=== PATIENT | female | born 1970 | race African-American/Black ===

== ENCOUNTER 2016-12-22 03:28 | Emergency (ER) | payer MEDICAID ==
[~2016-12-22] VITALS: Ht 170.2 cm; Wt 72.6 kg
[2016-12-22 03:30] VITALS: BP 141/98; PULSE 98; RESP 16; TEMP 97.9; O2SAT 99
--- NOTE | 2016-12-22 03:30 | NUR ---
Placed in room 06 . Placed on electronic device monitor, blood pressure machine and pulse oximeter. To gown for exam. Side rails up. Report given to KANNAN Parr.
--- NOTE | 2016-12-22 03:35 | NUR ---
Pt states she was rollerbladding around 2300 and fell on her tailbone. Pt states her pain is 9/10 and she cannot sleep. No deformities noted. Will continue to monitor. No distress noted.
--- NOTE | 2016-12-22 03:40 | NUR ---
ER at bedside examining patient.
--- NOTE | 2016-12-22 04:00 | NUR ---
Patient walked out of room and out of ED, stating "I'm just going to wait for my sister," Patient informed that she could wait for family in room, patient refused stating, "I'll just be a minute."
[2016-12-22 04:02] LABS: BILIRUBIN,URINE 1+ (NEGATIVE); CLARITY/URINE CLEAR (CLEAR); COLOR,URINE YELLOW (YELLOW); GLUCOSE,URINE NEGATIVE (NEGATIVE); KETONES,URINE TRACE (NEGATIVE); LEUKOCYTE ESTERASE ,URINE NEGATIVE (NEGATIVE); NITRITE, URINE NEGATIVE (NEGATIVE); PROTEIN URINE TRACE (NEGATIVE)
[2016-12-22 04:16] LABS: BLOOD, URINE TRACE (NEGATIVE)
[2016-12-22 04:18] LABS: BACTERIA,URINE FEW /HPF (None Seen); MUCUS,URINE 1+ /LPF (None Seen); RBC,URINE 0-3 /HPF (0-3); WBC,URINE 0-3 /HPF (0-3)
[2016-12-22 04:19] LABS: BARBITURATE, URINE NEGATIVE (NEG <=200); BENZODIAZEPINE, URINE NEGATIVE (NEG <=150); CANNABINOID, URINE POSITIVE (NEG <=50); COCAINE, URINE NEGATIVE (NEG <=150); METHAMPHETAMINES SCREEN,URINE NEGATIVE (NEG <=500); OPIATE, URINE POSITIVE (NEG <=100); PHENCYCLIDINE SCREEN,URINE NEGATIVE (NEG <=25); URINE AMPHETAMINE NEGATIVE (NEG <=500); URINE METHADONE NEGATIVE (NEG <=200); URINE OXYCODONE SCREEN POSITIVE (NEG <=100)
[2016-12-22 04:20] LABS: UR TRICYCLIC ANTIDEPRESSANTS NEGATIVE (NEG <=300); URINE PROPOXYPHENE SCREEN NEGATIVE (NEG <=300)
== END 2016-12-22 04:00 | disposition left against medical advice (07) ==
LOC: SED 03:28
DX: M54.5 Low back pain (principal); R03.0 Elevated blood-pressure reading, without diagnosis of hypertension; Z53.20 Procedure and treatment not carried out because of patient's decision for unspecified reasons; Z88.5 Allergy status to narcotic agent; W19.XXXA Unspecified fall, initial encounter; Y93.51 Activity, roller skating (inline) and skateboarding; Y92.89 Other specified places as the place of occurrence of the external cause; Y99.8 Other external cause status
CPT/HCPCS: 80307; 81000-TC; 81025; 99284